=== PATIENT | female | born 1960 | race Caucasian/White ===

== ENCOUNTER → 2020-11-18 | Outpatient (CLI) | payer OTHER ==
--- NOTE | 2020-11-18 22:10 | BD ---
EXAMINATION TYPE: Axial Bone Density DATE OF EXAM: 11/18/2020 COMPARISON: NONE CLINICAL HISTORY: 60 YR OLD FEMALE......ICD-10 CODE: POST MENOPAUSAL Height: 63.2 Weight: 140 FRAX RISK QUESTIONS: NOTHING TO NOTE HERE RISK FACTORS HISTORY OF: Diet low in dairy products/other sources of calcium: YES Postmenopausal woman: YES, AT ABOUT 49 YRS OLD Hyperparathyroidism: NO Adrenal Insufficiency: NO MEDICATIONS: Thyroid Medications: YES, SYNTHROID FOR ABOUT 15 YRS Additional Medications: CYMBALTA, XANAX, Additional History: THYROID EXAM MEASUREMENTS: Bone mineral densitometry was performed using the [employer] System. Bone mineral density as measured about the Lumbar spine is: ----- L1-L4(G/cm2): 1.363 T Score Values are as follows: ----- L1: -0.6 ----- L2: 0.7 ----- L3: 1.6 ----- L4: 4.1 ----- L1-L4: 1.5 Bone mineral density FIRST BONE DENSITY..........BASELINE STUDY Bone mineral density about the R hip (g/cm2): 0.876 Bone mineral density about the L hip (g/cm2): 0.925 T Score values are as follows: -----R Neck: -1.3 -----L Neck: -0.4 -----R Total: -1.0 -----L Total: -0.7 Bone mineral density FIRST BONE DENSITY......BASELINE STUDY FRAX%S: THERE IS A 7.4% CHANCE FOR A MAJOR OSTEOPOROTIC FX AND A 0.5% FOR HIP......PROBABILITY F OR FX IN 10 YRS TIME IMPRESSION: Osteopenia (T Score between -2.5 and -1). There is slightly increased risk of fracture and the patient may be considered for treatment. Re-Screen 2-5 years. NOTE: T-SCORE=SD OF THE YOUNG ADULT MEAN.
--- NOTE | 2020-11-23 14:39 | MM ---
Reason for exam: screening (asymptomatic). Last mammogram was performed 3 years and 6 months ago. History: Patient is postmenopausal. Physical Findings: A clinical breast exam by your physician is recommended on an annual basis and results should be correlated with mammographic findings. MG Screening Mammo w CAD Bilateral CC and MLO view(s) were taken. Prior study comparison: May 15, 2017, mammogram, performed at [place]. The breast tissue is heterogeneously dense. This may lower the sensitivity of mammography. No significant changes when compared with prior studies. ASSESSMENT: Benign, BI-RAD 2 RECOMMENDATION: Routine screening mammogram of both breasts in 1 year.
== END | disposition home or self-care (01) ==
LOC: RADBDWWP 13:36
PROVIDERS: ATTEND Family Medicine
DX: Z12.31 Encounter for screening mammogram for malignant neoplasm of breast (principal); M85.80 Other specified disorders of bone density and structure, unspecified site; Z78.0 Asymptomatic menopausal state
CPT/HCPCS: 77067; 77080

== ENCOUNTER → 2020-12-07 | Outpatient (CLI) | payer OTHER ==
--- NOTE | 2020-12-07 14:26 | MR ---
EXAMINATION TYPE: MR lumbar spine wo con DATE OF EXAM: 12/07/2020 12:24 PM COMPARISON: NONE HISTORY: Low back pain on mostly left side and hip. Multiplanar, MultiSpin echo imaging of the lumbar spine was performed. L1-L2: Mild decreased signal ossified compatible degenerative disc disease. Circumferential disc bulg e with mild effacement ventral thecal sac. No evidence for seble herniation or central stenosis. Fora mark are patent bilaterally. L2-L3: Severe disc desiccation with endplate degenerative marrow change noted. Posterior disc bulge e ffaces the ventral thecal sac without evidence for herniation or central stenosis. No foraminal encro achment. L3-L4: Severe disc desiccation with endplate degenerative marrow change noted. Posterior disc bulge e ffaces the ventral thecal sac without evidence for herniation or central stenosis. No foraminal encro achment. L4-L5: Severe disc desiccation vacuum disc. Posterior disc bulge greatest posterior laterally and to the right where there is right lateral recess stenosis. Severe right greater than left neural foramin al encroachment. L5-S1: Mild decreased signal ossified compatible degenerative disc disease. Circumferential disc bulg e with mild effacement ventral thecal sac. No evidence for seble herniation or central stenosis. Fora mark are patent bilaterally. Lumbar segments are intact. No paraspinal masses are identified. Conus medullaris has a normal appe arance. IMPRESSION: 1. Multilevel degenerative disc disease. Right lateral recess stenosis at L4-5.
== END | disposition home or self-care (01) ==
LOC: RADMRIMAIN 11:13
PROVIDERS: ATTEND Orthopaedic Surgery
DX: M48.061 Spinal stenosis, lumbar region without neurogenic claudication (principal); M51.36 Other intervertebral disc degeneration, lumbar region
CPT/HCPCS: 72148

== ENCOUNTER → 2021-01-10 | Outpatient (CLI) | payer OTHER ==
--- NOTE | 2021-01-10 18:00 | CT ---
EXAMINATION TYPE: CT foot RT wo con DATE OF EXAM: 01/10/2021 COMPARISON: Correlation made to x-rays of the right foot from 01/07/2021. HISTORY: right foot pain following fall CT DLP: 258.2 mGycm Automated exposure control for dose reduction was used. FINDINGS: There is comminuted fracture at the base of the second metatarsal. There is comminuted fracture at th e base of the third metatarsal. There may be a chip fracture in the base of the fourth metatarsal. Cu neiform and cuboid bone are intact. Navicular is intact. Talus and calcaneus are intact. There is soft tissue swelling about the midfoot. IMPRESSION: THERE IS COMMINUTED FRACTURE OF THE BASE OF THE SECOND, AND THIRD METATARSALS. A CHIP FRACTURE AT THE BASE OF THE FOURTH METATARSAL IS SUSPECTED. NO DEFINITE FRACTURE IS SEEN INVOLVING THE TARSAL BONES.
== END | disposition home or self-care (01) ==
LOC: RADCTMAIN 16:44
PROVIDERS: ATTEND Orthopaedic Surgery
DX: S92.201A Fracture of unspecified tarsal bone(s) of right foot, initial encounter for closed fracture (principal)

== ENCOUNTER 2021-01-25 11:30 | Day surgery (SDC) | payer OTHER ==
[2021-01-21 16:30] VITALS: BMI 23.3
[~2021-01-25 11:30] MED LIST: LACTATED RINGERS 1,000 ML IV SCH
[2021-01-25 11:55] VITALS: TEMP 97.4
[2021-01-25] MEDS ORDERED: LIDOCAINE 1% (10MG/ML) FOR IV START INTRADERMA ONE (12:02)
[2021-01-25] MEDS ORDERED: MIDAZOLAM 2 MG/2 ML VIAL ONE (12:20)
[2021-01-25] MEDS ORDERED: ROPIVACAINE 5MG/ML 20ML VIAL ONE (12:20)
[2021-01-25] MEDS ORDERED: fentaNYL (PF) 50 MCG/ML 2 ML AMP ONE (12:20)
[2021-01-25] MEDS ORDERED: methylPREDNISolone ACETATE 40 MG/ML 1 ML VIAL ONE (12:20)
[2021-01-25] MEDS ORDERED: IV FLUID CONTINUATION 1,000 ML IV ONE ×2 (12:35)
--- NOTE | 2021-01-25 12:35 | P.PCN ---
Date of Procedure: 01/25/21 Procedure(s) Performed: Procedure= Left sacroiliac joints steroid injection under fluoroscopy guidance (fluoroscopy image stored on file in the radiology Department ) Preoperative diagnosis= 1- Left sacroiliitis 2-lumbar spondylosis with facet arthropathy Postoperative diagnosis=Same as preop Diagnosis . Complication = none Condition= stable Anesthesia= moderate sedation with intravenous Versed 2 mg , and fentanyl 50 micrograms . Indication for the procedure= patient complaining of low back pain , examination was positive for severe tenderness over the sacroiliac joints bilaterally and patient diagnosed with sacroiliitis, for this reason he/ she was good candidate for sacroiliac joint steroid injection. Description of the procedure= procedure risk and benefits discussed with the patient, including but not limited, risk of infection and bleeding, and ALLERGIC reaction to the medication and not complete pain relief and patient agreed with the preceding patient taken to the operating room, placed in prone position or standard monitors applied to the patient then after induction of anesthesia back prepped with chlorhexidine 3 times , and vital signs monitored during the procedure and patient was given sedation to decrease the patient's anxiety Then under strict sterile technique, I did the left sacroiliac joint the which was identified under fluoroscopy guidance been local infiltration of the skin and subcu interstitial with lidocaine 1% then 22-gauge Quincke Needle advanced slowly under fluoroscopy and placed in the left sacroiliac joint needle placement confirmed with AP and oblique and lateral view and after appropriate needle placement confirmed and after negative aspiration, or heme , then Ropivacaine 0.5% 3 mL, and 60 mg of Depo-Medrol mixed together and injected in the left sacroiliac joint after negative aspiration patient tolerated the procedure well without any complication.
[2021-01-25 12:42] VITALS: RESP 16
[2021-01-25 12:58] VITALS: BP 123/64; PULSE 59
--- NOTE | 2021-01-25 13:34 | FL ---
Fluoroscopy HISTORY: Pain 5 seconds fluoroscopy time supplied to the referring clinician. 1 intraoperative C-arm images docume nt the procedure. See dictated report from anesthesia.
== END 2021-01-25 13:12 | disposition home or self-care (01) ==
LOC: ORPAIN 11:30
PROVIDERS: ATTEND Specialist
DX: M46.1 Sacroiliitis, not elsewhere classified (principal); M47.896 Other spondylosis, lumbar region; M48.061 Spinal stenosis, lumbar region without neurogenic claudication
CPT/HCPCS: J2250; J1030; J3010; J2795; G0260; 27096

== ENCOUNTER → 2021-02-16 | Outpatient (CLI) | payer OTHER ==
[2021-02-16 08:21] VITALS: BP 113/73; PULSE 72; RESP 16; TEMP 98.1
--- NOTE | 2021-02-16 08:40 | P.PN ---
Subjective Progress Note Date: 02/16/21 This is 60 years old female with a chronic history of severe low back pain, mainly on the left side with radiation to the left buttock area, it is constant and increases with any activity, she denies any numbness or tingling sensation in the lower extremities, she described her pain as dull aching pain, interfere with the quality of life, she denies any motor or sensory deficit, she denies any fever or night sweats, she denies any change in bowel movement or urination Objective - Vital Signs Vital signs: Vital Signs Temp 98.1 F 02/16/21 08:18 Pulse 72 02/16/21 08:18 Resp 16 02/16/21 08:18 BP 113/73 02/16/21 08:18 Pulse Ox 100 02/16/21 08:18 - Exam Physical Examinations : -Constitutiona : Cooperative , not in acute distress . -HEENT : nech : supple , no Lymphadenopathy , normal thyroid size . : eyes : no ptosis , no icterus, no photophobia . - neurologic : Cranial nerve II to XII intact , no focal neurological deffecit . -psychatric : alert , oriented X 3 , appropriate affect , intact judgment and insight . -Lymphatic : no Lymphadenopathy . - musculoskeltal : Lumber spine moter stegnth lower extremities ,thigh and legs 5/5 Right side , 5/5 Left side Normal sensation deep tendon reflexes : normal Knee Jerk , normal ankle Jerk lumber facet Loading Test = negative Range of motion of the lumbar spine Flexion 30 degrees, extension 10 degrees strait leg raising test = negative bilaterally Fabere test= negative bilaterally. Sever tenderness over the Sacroiliac joint on the Left sides only. Gaenslen test= positive left only . Seated flexion test= positive Left . Distraction test= positive left side only Sacroiliac compression test= positive left side only. MRI of the lumbar spine= multilevel lumbar degenerative disc disease. Assessment and Plan Plan: Assessment and plan=1-left sacroiliitis. 2-left sacroiliac joint dysfunction. Patient could benefit from repeat left-sided sacroiliac steroid injections under fluoroscopy guidance. - PQRS measures = - Patient's medications are documented in the chart. -Tobacco use is negative,. -Patient's has not received pneumococcal vaccine. -Advanced care planning discussed, patient not eligible. -Opiate contract not signed. -Pain positive and follow-up visit/procedure is scheduled. -Patient's blood pressure measured [113/73 ] , and documented in the record ,and patient will follow up with the primary care. -Patient's weight was measured and body mass index [23 ]within the normal limits and counseling was done. and patient instructed to follow-up with the primary care physician. -Patient was not identified as an unhealthy alcohol user Time with Patient: Less than 30
== END | disposition home or self-care (01) ==
LOC: PNWHC3 08:01
PROVIDERS: ATTEND Specialist
DX: M46.1 Sacroiliitis, not elsewhere classified (principal); M53.3 Sacrococcygeal disorders, not elsewhere classified
CPT/HCPCS: 99211

== ENCOUNTER 2021-03-08 12:37 | Day surgery (SDC) | payer OTHER ==
[2021-03-03 09:56] VITALS: BMI 23.3
[2021-03-08] MEDS ORDERED: LIDOCAINE 1% (10MG/ML) FOR IV START INTRADERMA ONE (13:12)
[2021-03-08 13:13] VITALS: RESP 16; TEMP 97.9
[2021-03-08] MEDS ORDERED: fentaNYL (PF) 50 MCG/ML 2 ML AMP ONE (13:28)
[2021-03-08] MEDS ORDERED: methylPREDNISolone ACETATE 40 MG/ML 1 ML VIAL ONE (13:28)
[2021-03-08] MEDS ORDERED: MIDAZOLAM 2 MG/2 ML VIAL ONE (13:28)
[2021-03-08] MEDS ORDERED: ROPIVACAINE 5MG/ML 20ML VIAL ONE (13:28)
--- NOTE | 2021-03-08 13:42 | P.PCN ---
Date of Procedure: 03/08/21 Procedure(s) Performed: Procedure= Left sacroiliac joints steroid injection under fluoroscopy guidance (fluoroscopy image stored on file in the radiology Department ) Preoperative diagnosis= 1- Left sacroiliitis 2-lumbar spondylosis with facet arthropathy 3-left sacroiliac joint dysfunction Postoperative diagnosis=Same as preop Diagnosis . Complication = none Condition= stable Anesthesia= moderate sedation with intravenous Versed 2 mg , and fentanyl 50 micrograms . Indication for the procedure= patient complaining of low back pain , examination was positive for severe tenderness over the sacroiliac joints bilaterally and patient diagnosed with sacroiliitis, for this reason he/ she was good candidate for sacroiliac joint steroid injection. Description of the procedure= procedure risk and benefits discussed with the patient, including but not limited, risk of infection and bleeding, and ALLERGIC reaction to the medication and not complete pain relief and patient agreed with the preceding patient taken to the operating room, placed in prone position or standard monitors applied to the patient then after induction of anesthesia back prepped with chlorhexidine 3 times , and vital signs monitored during the procedure and patient was given sedation to decrease the patient's anxiety Then under strict sterile technique, I did the left sacroiliac joint the which was identified under fluoroscopy guidance been local infiltration of the skin and subcu interstitial with lidocaine 1% then 22-gauge Quincke Needle advanced slowly under fluoroscopy and placed in the left sacroiliac joint needle placement confirmed with AP and oblique and lateral view and after appropriate needle placement confirmed and after negative aspiration, or heme , then Ropivacaine 0.5% 3 mL, and 60 mg of Depo-Medrol mixed together and injected in the left sacroiliac joint after negative aspiration patient tolerated the procedure well without any complication.
--- NOTE | 2021-03-08 13:55 | FL ---
Fluoroscopy INDICATION: Pain FINDINGS: Fluoroscopy time: 3 seconds. Images obtained: 1. IMPRESSIONS: 1. Documentation of fluoroscopy.
[2021-03-08 14:02] VITALS: BP 132/75; PULSE 59
[2021-03-08] MEDS ORDERED: IV FLUID CONTINUATION 1,000 ML IV ONE (14:02)
== END 2021-03-08 14:20 | disposition home or self-care (01) ==
LOC: ORPAIN 12:37
PROVIDERS: ATTEND Specialist
DX: M46.1 Sacroiliitis, not elsewhere classified (principal); M47.816 Spondylosis without myelopathy or radiculopathy, lumbar region; M25.80 Other specified joint disorders, unspecified joint
CPT/HCPCS: J2250; J1030; J3010; J2795; G0260; 27096

== ENCOUNTER → 2021-05-23 | Outpatient (CLI) | payer OTHER ==
[2021-05-23 12:38] VITALS: BP 126/64; PULSE 89; RESP 18; TEMP 98.1
--- NOTE | 2021-05-23 12:53 | P.PN ---
Subjective Progress Note Date: 05/23/21 This is a 60-year-old lady with history of chronic lower back pain with no radiation to the lower extremities. The patient had sacroiliac joint steroid injection which seems to have helped her slightly for her pain however her pain is very severe at this point and wakes her up at night. The lumbar spine MRI shows severe disc degeneration at multiple levels. The patient's pain radiates to the coccyx. Patient denies new-onset weakness, bowel/bladder incontinence, or any other signs or symptoms of cauda equina syndrome. There are no signs of acute intoxication, and no indications of medication diversion or overuse. In addition to above, 13-point review of systems is also negative for chest pain, shortness of breath, changes in vision, changes in hearing, new onset weakness, abdominal pain, diarrhea, extreme fatigue, malaise, fever, skin changes, homicidal or suicidal ideation, or bowel or bladder incontinence. Vital Signs: Reviewed in EMR Gen: AAOx3, NAD HEENT: PERRLA,hearing grossly normal Pulm: resp unlabored Neck: supple, trachea midline Neuro exam of the lower extremities: Straight leg raising test: Negative bilaterally Brenton's test: Negative bilaterally Range of motion of the lumbar spine: Facet loading test: Positive in the lumbar area Tenderness in the paravertebral musculature: Positive on the lumbar area Positive tenderness around the left sacroiliac joint Internal and external rotation of the hip joints did not elicit any pain Neuro: CN II-XII grossly intact, Imaging: Reviewed in EMR/chart Assessment: Severe multilevel lumbar DDD Lumbar spondylosis without myelopathy Possible sacroiliitis bilaterally Coccygodynia Plan: 1. Explanation: Opioid and psychological risk scores were reviewed. Diagnoses, prognoses, and multiple treatment options including but not limited to physical therapy, interventional therapies, adjuvant medical therapies, narcotic medication therapies, and surgery were discussed with the patient and all questions were answered to the patient's satisfaction. 2. Opioid agreement: Signed with the patient and the patient is warned not to use opioids while driving or before driving and not to combine opioids with benzodiazepines or alcohol. 3. Counseling: The patient was counseled extensively on SMOKING CESSATION, BODY MASS INDEX, EXERCISE. Specifically, the patient was instructed regarding the importance of smoking cessation, obesity, and exercise in the context of both chronic pain and overall health. 4. Procedures: Scheduled for diagnostic lumbar medial branch block for levels L4 5 and L5-S1 bilaterally. 5. Consultations: None 6. Investigations: None 7. Medications: Zanaflex 2 mg at night 8. Disposition: Proceed with the above-mentioned procedure as soon as possible 9. Maps were reviewed and were appropriate. Objective - Vital Signs Vital signs: Vital Signs Temp 98.1 F 05/23/21 12:34 Pulse 89 05/23/21 12:34 Resp 18 05/23/21 12:34 BP 126/64 05/23/21 12:34 Pulse Ox 95 05/23/21 12:34
== END ==
LOC: PNWHC3 12:23
PROVIDERS: ATTEND Anesthesiology
DX: M51.36 Other intervertebral disc degeneration, lumbar region (principal); M47.816 Spondylosis without myelopathy or radiculopathy, lumbar region; M53.3 Sacrococcygeal disorders, not elsewhere classified
CPT/HCPCS: 99211

== ENCOUNTER 2021-06-24 08:32 | Day surgery (SDC) | payer OTHER ==
[2021-06-23 10:02] VITALS: BMI 22.6
[2021-06-24 08:45] VITALS: TEMP 97.6
[2021-06-24] MEDS ORDERED: LACTATED RINGERS 1,000 ML IV ONE (08:45)
[2021-06-24] MEDS ORDERED: MIDAZOLAM 2 MG/2 ML VIAL ONE (09:10)
[2021-06-24] MEDS ORDERED: fentaNYL (PF) 50 MCG/ML 2 ML AMP ONE (09:10)
[2021-06-24] MEDS ORDERED: methylPREDNISolone ACETATE 40 MG/ML 1 ML VIAL ONE (09:10)
[2021-06-24] MEDS ORDERED: ROPIVACAINE 5MG/ML 20ML VIAL ONE (09:10)
--- NOTE | 2021-06-24 09:25 | P.PCN ---
Date of Procedure: 06/24/21 Procedure(s) Performed: PREOPERATIVE DIAGNOSIS : 1- Lumbar spondylosis with Facet Arthropathy without myelopathy . 2- Lumber degenerative disc disease POSTOPERATIVE DIAGNOSIS: 1- Lumbar spondylosis with Facet Arthropathy without myelopathy . 2- Lumber degenerative disc disease PROCEDURE: Diagnostic bilateral L3 , L4 , and L5 medial branch block under fluoroscopy guidance(fluoroscopy images available in the radiology Department ) ( To target the facet joint between L4-5 , and L5-S1 ) ANESTHESIA:, monitered anesthesia care, as per anesthesia department. EBL: Minimal COMPLICATION: None PROCEDURE INDICATION: Chronic low back pain secondary to Facet arthropathy unresponsive to conservative treatment. PROCEDURE DESCRIPTION: the patient was seen and identified in the preop holding area , risks and benefits and possible complications of the procedure and alternative were discussed with the patient, and the patient agreed to proceed with the procedure and signed the consent and vital signs monitored during the procedure and fluoroscopy was used to maximize the benefit and accuracy of the needle placement, and sedation was given to decrease patient anxiety, patient was taken to the procedure room and placed in prone position vital signs monitored in the back prepped with chlorhexidine X3 then under strict sterile technique using a right oblique fluoroscopy ,the junction of the transverse process and the superior articulating process of the right L3 , L4 , and L5 vertebra which corresponding to the fluoroscopy image of the eye of the Jadon dog on the block side for the medial branches and subsequently , after local infiltration of skin and subcu tissuies with Ropivacaine 0.5 % , one mL at each level ,then 22-gauge Quincke-type needles , 3 needle was used , each one of them placed at the junction of the base of the transverse process and the superior articular process at the appropriate level, and the needle was advanced until the periosteum contacted, needle placement confirmed with AP oblique and lateral view and after appropriate needle placement confirmed, and after negative aspiration for heme and CSF and there was no paresthesia 1-1/2 mL of Ropivacaine 0.5% mixed with 20 mg Depo-Medrol , then half mL injected at each level after negative aspiration the needle subsequently removed and the same procedure repeated for the left side at left side at L3 , L4 and L5 levels. At the end of the procedure and the needles removed and a bandage applied after the skin was cleaned the cleaning solution patient taken to recovery room in stable condition and monitors in the recovery room for 20-30 minutes and discharged home in stable condition after discharge criteria met and patient will follow up with the pain clinic in 2-4 weeks
[2021-06-24] MEDS ORDERED: IV FLUID CONTINUATION 1,000 ML IV ONE (09:28)
[2021-06-24 09:32] VITALS: RESP 16
--- NOTE | 2021-06-24 09:32 | FL ---
EXAMINATION TYPE: FL guided pain mgmt statistic DATE OF EXAM: 06/24/2021 CLINICAL HISTORY: Low back pain. TECHNIQUE: Fluoroscopy. COMPARISON: None. FINDINGS: Fluoroscopic guidance was provided during pain relief procedure performed by Dr. Contreras . A total of approximately 15 seconds of fluoroscopic time was utilized during the procedure and 4 s pot images are acquired. Images acquired shows needle localization at several levels in the lumbar s pine. IMPRESSION: As Above.
[2021-06-24 09:41] VITALS: BP 127/80; PULSE 63
== END 2021-06-24 09:58 | disposition home or self-care (01) ==
LOC: ORPAIN 08:32
PROVIDERS: ATTEND Specialist
DX: M47.816 Spondylosis without myelopathy or radiculopathy, lumbar region (principal); G89.29 Other chronic pain
CPT/HCPCS: 64493; 64494; 64495; J2250; J1030; J3010; J2795

== ENCOUNTER → 2021-08-03 | Outpatient (CLI) | payer BC, OTHER ==
[2021-08-03 09:43] VITALS: BP 112/64; PULSE 61; RESP 18; TEMP 98.2
--- NOTE | 2021-08-03 10:38 | P.PN ---
Subjective Progress Note Date: 08/03/21 Principal diagnosis: Chronic low back pain Ms. Monaco is a 60-year-old pleasant female came to the [facility] pain clinic for follow-up visit for lumbar back pain. Patient tried lumbar medial branch injection at L4-L5, and L5-S1 #1 with the good pain relief for 2 weeks up to 80%. Now her pain gradually coming back. She had a great pain relief with sacroiliac joint radiofrequency ablation. But her insurance is not covering to proceed for this injections at this time. But patient wants to talk to her insurance to get approval for SI radiofrequency ablation. Describes pain is aching, throbbing, constant type of pain. He rated his pain 7-8 out of 10 in severity. With the help of medications his pain levels are 6-7 out of 10 in severity. She still actively working but some days because of her pain it is difficult to perform her activities at work. Activities making her pain worse. Medications, resting helping in relieving her pain. Her pain is not radiating below the knees. Overall activities and decreased secondary to pain. Because of the pain sometimes patient is feeling lack of sleep, interest, and energy. Denied any bowel or bladder problems at this time. t. Patient denied any suicidal ideas/homicidal ideas at this time. Patient denied any red flag symptoms related to pain. Objective - Vital Signs Vital signs: Vital Signs Temp 98.2 F 08/03/21 09:36 Pulse 61 08/03/21 09:36 Resp 18 08/03/21 09:36 BP 112/64 08/03/21 09:36 Pulse Ox 99 08/03/21 09:36 Intake & Output 08/02/21 08/03/21 08/03/21 18:59 06:59 18:59 Weight 65.771 kg - Exam 13 point review of symptoms reviewed, negative except as mentioned in the history of present illness. Assessment and Plan Assessment: Lumbar spondylosis without myelopathy Myofascial pain syndrome, and chronic pain syndrome Sacroiliac joint dysfunction Plan: 1 Opioid, and psychological risk tools, and scores were reviewed. Diagnoses, prognosis, and multiple treatment options including but not limited to physical therapy, interventional therapy, adjunct medication therapy, narcotic medication, and surgical options were discussed with the patient. And all questions were answered to the patient's satisfaction. #2 and treatment plan agreement: Intervention procedures, alternative options discussed with the patient #3 Patient was counseled on importance of regular exercise. Including daphne chi, aerobic exercises as tolerated. Which helps for chronic pain, and overall well- being. Patient also counseled regarding importance of weight control rolling chronic pain, and overall other health issues. By altering diet habits, minimizing sugar intake, and processed foods helps in minimizing Inflammation. Also discussed with the patient regarding intermittent fasting. Patient counseled regarding smoking associated with chronic pain, worsening inflammation, and smoking effects on liver, and medication metabolism. And encouraged to stop smoking. #4 consultation: Neurosurgical consultation for evaluation and treatment of her sacroiliac joint dysfunction #5 investigations: MAPS , urine drug test- reviewed #6 interventional procedures: Bilateral lumbar L4-L5, and L5-S1 medial branch block #2. Procedure, competitions, alternative discussed with the patient #7 medications #1 medication oxide 400 mg by mouth daily #8 morphine milligrams equivalents dose ( MME) per day: 0 from the pain clinic. #9 TENS unit's, and percussion massage device #10 disposition scheduled to follow up with pain clinic for intervention procedure in 2-4 weeks duration . Time with Patient: Less than 30
== END ==
LOC: PNWHC3 08:56
DX: M47.816 Spondylosis without myelopathy or radiculopathy, lumbar region (principal); G89.4 Chronic pain syndrome; M79.18 Myalgia, other site; M53.3 Sacrococcygeal disorders, not elsewhere classified
CPT/HCPCS: 99211

== ENCOUNTER 2021-09-02 06:16 | Day surgery (SDC) | payer BC ==
[2021-08-31 16:08] VITALS: BMI 24.4
[2021-09-02 06:49] VITALS: RESP 16; TEMP 97.6
[2021-09-02] MEDS ORDERED: LIDOCAINE 1% (10MG/ML) FOR IV START INTRADERMA ONE (06:55)
[2021-09-02] MEDS: LACTATED RINGERS 1,000 ML IV SCH ×2 (06:59→07:02)
[2021-09-02] MEDS ORDERED: MIDAZOLAM 2 MG/2 ML VIAL ONE (07:03)
[2021-09-02] MEDS ORDERED: fentaNYL (PF) 50 MCG/ML 2 ML AMP ONE (07:03)
[2021-09-02] MEDS ORDERED: ROPIVACAINE 5MG/ML 20ML VIAL ONE (07:04)
[2021-09-02] MEDS ORDERED: methylPREDNISolone ACETATE 40 MG/ML 1 ML VIAL ONE (07:04)
--- NOTE | 2021-09-02 07:21 | P.PCN ---
Date of Procedure: 09/02/21 Procedure(s) Performed: PREOPERATIVE DIAGNOSIS : 1- Lumbar spondylosis with Facet Arthropathy without myelopathy . 2- Lumber degenerative disc disease POSTOPERATIVE DIAGNOSIS: 1- Lumbar spondylosis with Facet Arthropathy without myelopathy . 2- Lumber degenerative disc disease PROCEDURE: Diagnostic bilateral L3 , L4 , and L5 medial branch block under fluoroscopy guidance(fluoroscopy images available in the radiology Department ) ( To target the facet joint between L4-5 , and L5-S1 )# 2nd ANESTHESIA:, monitered anesthesia care, as per anesthesia department. EBL: Minimal COMPLICATION: None PROCEDURE INDICATION: Chronic low back pain secondary to Facet arthropathy unresponsive to conservative treatment. PROCEDURE DESCRIPTION: the patient was seen and identified in the preop holding area , risks and benefits and possible complications of the procedure and alternative were discussed with the patient, and the patient agreed to proceed with the procedure and signed the consent and vital signs monitored dur ing the procedure and fluoroscopy was used to maximize the benefit and accuracy of the needle placement, and sedation was given to decrease patient anxiety, patient was taken to the procedure room and placed in prone position vital signs monitored in the back prepped with chlorhexidine X3 then under strict sterile technique using a right oblique fluoroscopy ,the junction of the transverse process and the superior articulating process of the right L3 , L4 , and L5 vertebra which corresponding to the fluoroscopy image of the eye of the Jadon dog on the block side for the medial branches and subsequently , after local infiltration of skin and subcu tissuies with Ropivacaine 0.5 % , one mL at each level ,then 22-gauge Quincke-type needles , 3 needle was used , each one of them placed at the junction of the base of the transverse process and the superior articular process at the appropriate level, and the needle was advanced until the periosteum contacted, needle placement confirmed with AP oblique and lateral view and after appropriate needle placement confirmed, and after negative aspiration for heme and CSF and there was no paresthesia 1-1/2 mL of Ropivacaine 0.5% mixed with 20 mg Depo-Medrol , then half mL injected at each level after negative aspiration the needle subsequently removed and the same procedure repeated for the left side at left side at L3 , L4 and L5 levels. At the end of the procedure and the needles removed and a bandage applied after the skin was cleaned the cleaning solution patient taken to recovery room in stable condition and monitors in the recovery room for 20-30 minutes and discharged home in stable condition after discharge criteria met and patient will follow up with the pain clinic in 2-4 weeks
[2021-09-02] MEDS ORDERED: IV FLUID CONTINUATION 1,000 ML IV ONE (07:26)
[2021-09-02 07:49] VITALS: BP 124/71; PULSE 54
--- NOTE | 2021-09-02 08:15 | FL ---
Fluoroscopy INDICATION: Pain FINDINGS: Fluoroscopy time: 6 seconds. Images obtained: 4. IMPRESSIONS: 1. Documentation of fluoroscopy.
== END 2021-09-02 08:01 | disposition home or self-care (01) ==
LOC: ORPAIN 06:16
PROVIDERS: ATTEND Specialist
DX: M47.816 Spondylosis without myelopathy or radiculopathy, lumbar region (principal); G89.29 Other chronic pain
CPT/HCPCS: 64493; 64494; J2250; J1030; J3010; J2795

== ENCOUNTER → 2021-09-19 | Outpatient (CLI) | payer BC ==
[2021-09-19 08:39] VITALS: BP 105/71; PULSE 60; RESP 18
--- NOTE | 2021-09-19 09:10 | P.PN ---
Subjective Progress Note Date: 09/19/21 [facility] follow visit for this 61 years old female with a chronic history of severe low back pain she states also lumbar spondylosis, facet arthropathy and lumbar degenerative disc disease and left sacroiliitis, and clearly we have done diagnostic medial branch block lumbar area at L4 5 and L5-S1 2, reported that she got more than 80% improvement of her low back pain after each injection and she is currently, advocating severe low back pain which is constant and increases with any activity interfering with her quality of life, he denies any motor or sensory deficit she denies any fever or night sweats Objective - Vital Signs Vital signs: Vital Signs Temp Pulse 60 09/19/21 08:32 Resp 18 09/19/21 08:32 BP 105/71 09/19/21 08:32 Pulse Ox 100 09/19/21 08:32 - Exam Physical Examinations : -Constitutiona : Cooperative , not in acute distress . -HEENT : nech : supple , no Lymphadenopathy , normal thyroid size . : eyes : no ptosis , no icterus, no photophobia . - neurologic : Cranial nerve II to XII intact , no focal neurological deffecit . -psychatric : alert , oriented X 3 , appropriate affect , intact judgment and insight . -Lymphatic : no Lymphadenopathy . - musculoskeltal : Lumber spine moter stegnth lower extremities ,thigh and legs 5/5 Right side , 5/5 Left side deep tendon reflexes : normal Knee Jerk , normal ankle Jerk lumber facet Loading Test =positive Right , positive Left Range of motion of the lumbar spine Flexion 30 degrees, extension 10 degrees strait leg raising test = negative bilaterally Fabere test= negative bilaterally . Sever tenderness over the Sacroiliac joint on the Left sides Gaenslen test= positive left . Seated flexion test= positive Left . Distraction test= positive left. Sacroiliac compression test= positive left Assessment and Plan Plan: Assessment and plan=1-Lumbar spondylosis with lumbar facet arthropathy without myelopathy. 2-left sacroiliitis. 3-lumbar degenerative disc disease. She had 80% improvement of her low back pain after diagnostic medial branch block lumbar area at L4 5 and L5-S1 2 Patient will be good candidate to have RFA medial branch lumbar area at L4 5 and L5-S1. - PQRS measures = - Patient's medications are documented in the chart. -Tobacco use is positiv, and counseling.Given. -Patient's has not received pneumococcal vaccine. -Advanced care planning discussed, patient not eligible. -Opiate contract not signed. -Pain positive and follow-up visit/procedure is scheduled. -Patient's blood pressure measured [ 105/71 ] , and documented in the record ,and patient will follow up with the primary care. -Patient's weight was measured and body mass index [ 24]within the normal limits and counseling was done. and patient instructed to follow-up with the primary care physician. -Patient was not identified as an unhealthy alcohol user Time with Patient: Less than 30
== END ==
LOC: PNWHC3 08:10
PROVIDERS: ATTEND Specialist
DX: M47.816 Spondylosis without myelopathy or radiculopathy, lumbar region (principal); M51.36 Other intervertebral disc degeneration, lumbar region; M46.1 Sacroiliitis, not elsewhere classified
CPT/HCPCS: 99211

== ENCOUNTER 2021-11-17 09:33 | Day surgery (SDC) | payer BC ==
[2021-11-10 12:36] VITALS: BMI 23.3
[2021-11-17 10:00] VITALS: RESP 16; TEMP 98.2
[2021-11-17] MEDS: LACTATED RINGERS 1,000 ML IV SCH ×2 (10:05→10:16)
--- NOTE | 2021-11-17 10:45 | P.PCN ---
Date of Procedure: 11/17/21 Procedure(s) Performed: PREOPERATIVE DIAGNOSIS: 1-Lumbar Spondylosis with Facet Arthropathy without myelopathy. 2- Lumber degenerative disc disease. POSTOPERATIVE DIAGNOSIS: 1- Lumbar Spondylosis with Facet Arthropathy without myelopathy. 2- Lumber degenerative disc disease. PROCEDURES :Bilateral Radiofrequency thermocoagulation, L3 , L4 , and L5 medial branch, with fluoroscopic guidance (fluoroscopy images available in the radiology department) ( to denervate the facet joint at Bilateral L4-5 ,and L5-S1 levels ). ANESTHESIA: Moderate sedation with intravenous versed 2 mg and fentaneyl 100 mcg, and local infiltration with Ropivacaine 0.5 % . EBL: Minimal PROCEDURE INDICATION: The patient with low back pain secondary to lumbar facet arthropathy who had more than 50% relief of her pain with previous diagnostic lumbar medial branch block with bupivacaine. PROCEDURE DESCRIPTION / TECHNIQUE: The patient was seen and identified in the preoperative area. Risks, benefits, complications, including but not limited to risk of infection ,bleeding , allergic reactions to the medications and no complete pain releife , and alternatives were discussed with the patient, the patient agreed to proceed with the procedure and signed the consent. IV was s tarted. Vital signs remained stable throughout the procedure. Patient was taken to the OR and time out was completed. The patient was placed in the prone position on the procedure table. The lumber area was prepped and draped in the usual sterile fashion. . Vital signs were closely monitored during the procedure .IV sedation was used during the procedure to decrease patients anxiety. Using AP and then oblique fluoroscopy, the ``eye of the Jadon dog corresponding to the connection between the superior and transverse articular processes of right L3, L4, and L5 were identified, marked, and localized with 1% lidocaine. Subsequently, a 18 -pn radiofrequency cannula with a 10- mm active tip was advanced guided by fluoroscopy to each of the``eyes of the Jadon dog at right L3, L4, and L5. Each site then underwent sensory testing at 50 Hz and 0 to 1 volt and motor testing at 2.5 Hz and 0 to 3 volt with local stimulation, but no radicular symptoms down the legs. Thereafter each sites underwent radiofrequency thermocoagulation at 80 degrees celsius for 90 seconds after injecting 0.5 ml of PF Ropivacaine 1ml, then after the thermocoagulation done , 1 ml of the block solution containing Depo-Medrol 20 mg and 3 ml of Ropivacaine 0.5% was injected at the right L3 , L4 , and L5 , levels after negative aspiration of CSF and blood and with no paresthesias. Cannulas were retracted while injecting lidocaine 1% until the needle is out. The same procedure was repeated at the level of Left L3, L4, and L5 levels. At the end of the procedure, the skin was cleansed and bandages were applied. COMPLICATIONS: No acute complications. DISPOSITION / PLANS: The patient was placed in a supine position and transferred to the recovery area in a stable condition for observation and was discharged from the recovery room after meeting discharge criteria. Home discharge instructions given to the patient by the staff. The patient was reexamined prior to discharge. The patient will schedule a follow up in the clinic in 2-4 weeks.
[2021-11-17] MEDS ORDERED: IV FLUID CONTINUATION 500 ML IV ONE (10:50)
[2021-11-17 11:20] VITALS: BP 123/68; PULSE 58
--- NOTE | 2021-11-17 14:07 | FL ---
EXAMINATION TYPE: FL guided pain mgmt statistic DATE OF EXAM: 11/17/2021 FLUOROSCOPY Fluoroscopy time of 13 seconds was used during bilateral lumbar radial frequency ablation. 6 image/s document/s the procedure.
== END 2021-11-17 11:24 | disposition home or self-care (01) ==
LOC: ORPAIN 09:33
PROVIDERS: ATTEND Specialist
DX: M47.816 Spondylosis without myelopathy or radiculopathy, lumbar region (principal); M51.36 Other intervertebral disc degeneration, lumbar region; Z78.0 Asymptomatic menopausal state
CPT/HCPCS: 99152; 99153

== ENCOUNTER 2022-01-31 09:26 | Day surgery (SDC) | payer BC ==
[2022-01-26 13:27] VITALS: BMI 22.4
[~2022-01-31 09:26] MED LIST changes: +LIDOCAINE 1% (10MG/ML) FOR IV START INTRADERMA PRN
[2022-01-31 10:31] VITALS: RESP 16; TEMP 97.5
[2022-01-31] MEDS ORDERED: ROPIVACAINE 5MG/ML 20ML VIAL ONE (10:32)
[2022-01-31] MEDS ORDERED: methylPREDNISolone ACETATE 40 MG/ML 1 ML VIAL ONE (10:32)
[2022-01-31] MEDS ORDERED: MIDAZOLAM 2 MG/2 ML VIAL ONE (10:32)
[2022-01-31] MEDS ORDERED: fentaNYL (PF) 50 MCG/ML 2 ML AMP ONE (10:32)
--- NOTE | 2022-01-31 10:49 | P.PCN ---
Date of Procedure: 01/31/22 Procedure(s) Performed: Procedure= Left sacroiliac joints steroid injection under fluoroscopy guidance (fluoroscopy image stored on file in the radiology Department ) Preoperative diagnosis= 1- Left sacroiliitis 2-lumbar spondylosis with facet arthropathy 3-left sacroiliac joint dysfunction Postoperative diagnosis=Same as preop Diagnosis . Complication = none Condition= stable Anesthesia= moderate sedation with intravenous Versed 2 mg , and fentanyl 100 micrograms . Indication for the procedure= patient complaining of low back pain , examination was positive for severe tenderness over the sacroiliac joints bilaterally and patient diagnosed with sacroiliitis, for this reason, she was good candidate for sacroiliac joint steroid injection. Description of the procedure= procedure risk and benefits discussed with the patient, including but not limited, risk of infection and bleeding, and ALLERGIC reaction to the medication and not complete pain relief and patient agreed with the preceding patient taken to the operating room, placed in prone position or standard monitors applied to the patient then after induction of anesthesia back prepped with chlorhexidine 3 times , and vital signs monitored during the procedure and patient was given sedation to decrease the patient's anxiety Then under strict sterile technique, I did the left sacroiliac joint the which was identified under fluoroscopy guidance been local infiltration of the skin and subcu interstitial with lidocaine 1% then 22-gauge Quincke Needle advanced slowly under fluoroscopy and placed in the left sacroiliac joint needle placement confirmed with AP and oblique and lateral view and after appropriate needle placement confirmed and after negative aspiration, or heme , then Ropivacaine 0.5% 4 mL, and 60 mg of Depo-Medrol mixed together and injected in the left sacroiliac joint after negative aspiration patient tolerated the procedure well without any complication.
[2022-01-31] MEDS ORDERED: IV FLUID CONTINUATION 1,000 ML IV ONE (10:52)
[2022-01-31 11:10] VITALS: BP 122/65; PULSE 58
--- NOTE | 2022-01-31 11:32 | FL ---
Fluoroscopy INDICATION: Pain FINDINGS: Fluoroscopy time: 2 seconds. Images obtained: 1. IMPRESSIONS: 1. Documentation of fluoroscopy.
== END 2022-01-31 11:40 | disposition home or self-care (01) ==
LOC: ORPAIN 09:26
PROVIDERS: ATTEND Specialist
DX: M46.1 Sacroiliitis, not elsewhere classified (principal); M53.3 Sacrococcygeal disorders, not elsewhere classified; M47.816 Spondylosis without myelopathy or radiculopathy, lumbar region
CPT/HCPCS: 27096; J2250; J1030; J3010; J2795; 99152

== ENCOUNTER → 2022-02-22 | Outpatient (CLI) | payer BC, OTHER ==
[2022-02-22 11:41] VITALS: BP 108/72; PULSE 63; RESP 18; TEMP 98.4
--- NOTE | 2022-02-22 11:58 | P.PN ---
Subjective Progress Note Date: 02/22/22 Principal diagnosis: A 61 yr old female with a history of severe and chronic low back pain secondary to lumbar degenerative disc diseases and lumbar spondylosis with facet arthropathy presents today for evaluation status post left SI joint injection 1. Patient states she experiencing 0% pain relief status post procedure. Pain level is currently at 10 out of 10 in intensity, constant, throbbing, achy in the lower left aspects of her lumbar spine with radiation of pain towards the left hip. Pain is dull/ achy/ sharp/ shooting towards . Pain is provoked by standing for periods of 20 minutes and lifting. Pain is alleviated with medications, topical patches, injections, ice, heat, physical therapy 1 year ago, chiropractic treatments by 3 different chiropractors which did not help, massage therapy 1 year ago, use of a recliner and rest. Interventional pain procedures completed include BL RFA L4-L5, L5-S1, L SI joint x 1. Patient is currently on Tylenol and Aleve OTC. Patient denies any side effects of the medication(s), denies excessive drowsiness or sleepiness, denies suicidal ideation and reports that the current pain medication is helping to control the pain and improve activities of daily living. Patient denies any motor or sensory deficits. Patient denies any fever or night sweats, denies any change in the bowel movements or urination. Physical Examination: -Constitutional: Cooperative. Not in acute distress . -HEENT: Neck is supple. No lymphadenopathy. No thyromegaly. Normal thyroid size. Eyes: No ptosis , no icterus, no photophobia. ENT: No auditory deficits. Normal oropharynx. No Thrush. - Respiratory: Chest clear to auscultations bilaterally. No wheezing. No rhonchi. - Cardiovascular: Regular rate and rhythm. S1 / S2 , no S3 , no S4. - Gastrointestinal: Abdomen soft no tenderness. Bowel sounds positive in all four quadrants. No organomegaly. - Genitourinary: Deferred. - Neurologic: Cranial nerve II to XII intact. No focal neurological deficits. - Psychatric: Alert & oriented x 3. Matching mood & appropriate affect. Judgment and insight intact. - Lymphatic: No Lymphadenopathy. - Musculoskeletal: Cervical spine: Muscle bulk/ tone/ strength in the bilateral upper extremities normal. Facet loading test cervical area positive. Lumbar spine: Motor bulk/ tone/ strength lower extremities , thigh and legs : 5/5 Deep tendon reflexes : Normal Knee Jerk. Normal Ankle Jerk . Vertebral body tenderness to palpation over L5 Lumbar Facet Loading Test positive Straight Leg Raise: positive at 30 degrees right side/ left side Gaenslen's Test positive Sacral spine : Severe tenderness over the Sacroiliac joint: right side / left side Range of motion: Flexion of the lumbar spine <60 degrees Range of motion: Extension of the lumbar spine <20 degrees Gaenslen's Test positive Heide test: positive right side / left side Assessment and plan: Chronic low back pain secondary to lumbar degenerative disc disease , lumbar spondylosis with facet arthropathy without myelopathy Recommendation of L TF ROBIN L4-L5. May need a series of injections, up to 3 within a 6 month period, to obtain optimal pain relief. Risks, benefits of procedure discussed and patient verbalized understanding. Denies anticoagulant use. Denies medical history of diabetes. All patient questions answered MAPS reviewed and it was appropriate. I have spent 31 minutes on patient care today. Dr Contreras was available by phone for the evaluation of this patient. The time was used to review the medical records including relevant urine studies and Prescription history (MAPs), review of the available imaging, evaluation and examination of the patient, coordination of care with the medical staff and if applicable referring physicians, as well as creation of the medical record Objective - Vital Signs Vital signs: Vital Signs Temp 98.4 F 02/22/22 11:29 Pulse 63 02/22/22 11:29 Resp 18 02/22/22 11:29 BP 108/72 02/22/22 11:29 Pulse Ox 97 02/22/22 11:29 Intake & Output 02/21/22 02/22/22 02/22/22 18:59 06:59 18:59 Weight 63.796 kg PQRS Measure Charge Sheet Mode of Arrival: Ambulatory - Pain Location Left Lower Back Non-Pharmacological Interventions: Heat, Ice, Inactivity Pharmacological Interventions: PRN Medication, Topical Medication PQRS Narrative: Blood Pressure 108/72 Pain Intensity [Left Lower 10 Back] Scale Used Numeric (1 - 10) Hx Alcohol Use (MH) Yes Home Medications: Ambulatory Orders Citalopram Hydrobromide [CeleXA] 20 mg PO HS 08/31/21
== END ==
LOC: PNWHC3 11:11
PROVIDERS: ATTEND Specialist
DX: G89.29 Other chronic pain (principal); M51.36 Other intervertebral disc degeneration, lumbar region; M47.816 Spondylosis without myelopathy or radiculopathy, lumbar region
CPT/HCPCS: 99211

== ENCOUNTER → 2022-03-30 | Day surgery (SDC) | payer BC, OTHER ==
[2022-03-29 12:58] VITALS: BMI 23.3
[~2022-03-30] MED LIST changes: +IOPAMIDOL M200 10 ML VIAL ONE; +LACTATED RINGERS 1,000 ML BAG IV ONE; -LACTATED RINGERS 1,000 ML IV SCH; -LIDOCAINE 1% (10MG/ML) FOR IV START INTRADERMA PRN; +MIDAZOLAM 2 MG/2 ML VIAL ONE; +fentaNYL (PF) 50 MCG/ML 2 ML AMP ONE; +methylPREDNISolone ACETATE 40 MG/ML 1 ML VIAL ONE
--- NOTE | 2022-03-30 10:55 | P.PCN ---
Date of Procedure: 03/30/22 Procedure(s) Performed: PREOPERATIVE DIAGNOSIS:1- Lumbar radiculopathy .2-lumbar spondylosis with lumbar facet arthropathy. 3-lumbar degenerative disc disease POSTOPERATIVE DIAGNOSIS: Same as preoperative diagnoses. PROCEDURE 1. Transforaminal epidural steroid injection under fluoroscopic guidance at left L4-5 level. (Fluoroscopy images stored on file in the radiology Department ) 2. Lumbar epidurogram . ANESTHESIA: Local with 1% lidocaine 3 ml , moderate sedation with intravenous Versed 2 mg and fentanyle 100 micrograms. EBL: Minimal PROCEDURE INDICATION: The patient with low back pain and radiculopathy symptoms unresponsive to conservative treatment. PROCEDURE DESCRIPTION / TECHNIQUE: The patient was seen and identified in the preoperative area. Risks, benefits, complications, and alternatives were discussed with the patient. The patient agreed to proceed with the procedure and signed the consent. IV was started, and vital signs were stable. Patient was taken to the OR and time out was completed. The patient was placed in the prone position on procedure table and a pillow was placed under the abdomen to reduce lumbar lordosis. The lumbosacral area was prepped and draped in the usual sterile fashion. Critical pause was taken. Vital signs were closely monitored during the procedure. Conscious sedation was used during the procedure to decrease patient s anxiety. Using oblique fluoroscopy, the chin of the `FabJadon dog at left L4-5 level was identified, and the skin and deeper tissues just below was localized with 1% lidocaine. Subsequently, a 22-gauge 3.5-inch spinal needle was advanced under a tunneled view fluoroscopic guidance just underneath the chin of the `Judyy dog at the left L4-5 Under lateral fluoroscopy, the needle was then advanced to the posterior border of the interforaminal space. After negative aspiration of CSF and blood and with no paresthesias, 1 mL Isovue 200 contrast dye was injected excellent epidurogram and outlining of the nerve root Subsequently, 3 mL of block solution containing 80 mg Depo-Medrol and 2 mL of 0.9% normal saline PF was injected. Needle was removed . At the end of the procedure, skin was cleansed, and bandages were applied. COMPLICATIONS:none DISPOSITION / PLANS: The patient was placed in a supine position and transferred to the recovery area in a stable condition for observation. There was no evidence of lower extremity motor or sensory deficit after the procedure. Patient was discharged from the recovery room after meeting discharge criteria. Home discharge instructions were given to the patient by the staff. The patient was reexamined prior to discharge.
--- NOTE | 2022-03-30 15:59 | FL ---
Fluoroscopy INDICATION: Pain FINDINGS: Fluoroscopy time: 5 seconds. Images obtained: 1. IMPRESSIONS: 1. Documentation of fluoroscopy.
== END ==
LOC: ORPAIN 09:52
PROVIDERS: ATTEND Specialist
DX: M51.16 Intervertebral disc disorders with radiculopathy, lumbar region (principal)
CPT/HCPCS: 64483; J1040; 99152

== ENCOUNTER → 2024-06-06 | Outpatient (CLI) | payer OTHER ==
--- NOTE | 2024-06-06 11:38 | BD ---
EXAMINATION TYPE: Axial Bone Density DATE OF EXAM: 06/06/2024 CLINICAL HISTORY: 63 years old Female. ICD-10 CODE: Z78.0 POST MENOPAUSAL Height: 64 Weight: 128.3 FRAX RISK QUESTIONS: Alcohol (3 or more units per day): no Family History (Parent hip fracture): no Glucocorticoids (More than 3mos): no (Ex: prednisone, prednisolone, methylprednisolone, dexamethasone, and hydrocortisone). History of Fracture in Adulthood: foot Secondary Osteoporosis: 1. Type 1 Diabetes: no 2. Hyperthyroidism: no 3. Menopause before 45: no 4. Malnutrition: no 5. Chronic liver disease: no Rheumatoid Arthritis: no Current Tobacco Use: no RISK FACTORS HISTORY OF: Hip Fracture (Right/Left): no Spine Fracture: no History of Wrist Fracture: no Surgery to Spine/Hip(right/left)/Wrist (right/left): L4-L5 fusion When: 2020 MEDICATIONS: Thyroid Medications: no Osteoporosis Medications: no EXAM MEASUREMENTS: Bone mineral density about the R hip (g/cm2): 0.830 Bone mineral density about the L hip (g/cm2): 0.859 T Score values are as follows: -----R Neck: -1.6 -----L Neck: -0.9 -----R Total: -1.4 -----L Total: -1.2 Z Score values are as follows: -----R Neck: -0.1 -----L Neck: 0.6 -----R Total: -0.2 -----L Total: 0.0 Bone mineral density has: decreased -6.1 % since study of: 11/18/2020 FRAX%s: The graph provided illustrates a 14.3% chance for a major osteoporotic fx and a 1.6% chance f or the hips probability for fx in 10 years time. IMPRESSION: Osteopenia (T Score between -2.5 and -1). There is slightly increased risk of fracture and the patient may be considered for treatment. Re-Screen 2-5 years. NOTE: T-SCORE=SD OF THE YOUNG ADULT MEAN.
--- NOTE | 2024-06-06 11:48 | CTL ---
EXAMINATION TYPE: CT Low Dose Lung DATE OF EXAM ORDERED: 06/06/2024 History: Lung cancer screening CT DLP: 47.[address] CTDI: 1.2 mGy Automated exposure control for dose reduction was used. Comparison: 12/19/2022 TECHNIQUE: Low dose computed tomography scan was performed through the chest at 1 mm thick sections a nd reconstructed images in multiple planes at 1 mm and [address] DIAGNOSTIC QUALITY: Satisfactory FINDINGS: There are mild emphysematous changes. There is no airspace/consolidated density or abnormal interstit ial density. There are scattered multiple sub-4 mm nodules all of which are stable. No new or suspicious lung mass or nodule seen. There is no pleural effusion, pleural thickening or pneumothorax. Three-vessel chest are normal with no mediastinal, hilar or axillary adenopathy. Limited scanning through the upper abdomen reveals no gross abnormality. No focal osseous lesions are seen. IMPRESSION: 1. Lung RADS category 2 benign findings. Multiple stable sub-4 mm nodules. Continue routine screening yearly intervals. 2. Mild emphysematous changes. 3. No acute cardiopulmonary disease.
--- NOTE | 2024-07-02 11:48 | MM ---
Reason for Exam: Screening (asymptomatic). Last mammogram was performed 1 year(s) and 6 month(s) ago. Patient History: Menarche at age 14. First Full-Term at age 21. Postmenopausal. Mother had breast cancer at or over age 50. Risk Values: Milena 5 year model risk: 2.9%. NCI Lifetime model risk: 12.8%. Prior Study Comparison: 05/15/2017 Screening Mammogram, [place]. 11/18/2020 Bilateral Screening Mammogram, [facility]. 12/19/2022 Bilateral MG screening mammo w CAD, [facility]. Tissue Density: There are scattered areas of fibroglandular density. Findings: Analyzed By CAD. Right breast: There is no suspicious group of microcalcifications or new suspicious mass. Left breast: There is no suspicious group of microcalcifications or new suspicious mass. Overall Assessment: Negative, BI-RAD 1 Management: Screening Mammogram of both breasts in [address] [facility] will attempt to contact patient to return for supplemental views and ultrasound if indicated. Patient should continue monthly self-breast exams. A clinical breast exam by your physician is recommended on an annual basis. This exam should not preclude additional follow-up of suspicious palpable abnormalities. Note on Milena scores and lifetime risk: 1. A Milena score greater than 3% is considered moderate risk. If this is the case, consider specialist referral to assess eligibility for a risk reducing agent. 2. If overall lifetime risk for the development of breast cancer is 20% or higher, the patient may qualify for future screening with alternating mammogram and breast MRI. Electronically signed and approved by: Carlito Sahu DO
== END | disposition home or self-care (01) ==
LOC: RADBDWWP 10:18
PROVIDERS: ATTEND Family Medicine
DX: Z12.2 Encounter for screening for malignant neoplasm of respiratory organs (principal); Z12.31 Encounter for screening mammogram for malignant neoplasm of breast; M85.89 Other specified disorders of bone density and structure, multiple sites; J43.9 Emphysema, unspecified; Z78.0 Asymptomatic menopausal state; Z80.3 Family history of malignant neoplasm of breast; Z87.891 Personal history of nicotine dependence
CPT/HCPCS: 71271; 77063; 77067; 77080